=== PATIENT | male | born 1960 | race Caucasian/White ===

== ENCOUNTER 2021-03-13 09:53 | Outpatient (CLI) | payer OTHER | END 2021-03-13 09:54 | disposition home or self-care (01) | LOC: ULT 09:53 | PROVIDERS: ATTEND Physician Assistant Medical | DX: K76.0 Fatty (change of) liver, not elsewhere classified (principal); I85.00 Esophageal varices without bleeding; R16.1 Splenomegaly, not elsewhere classified; Z90.49 Acquired absence of other specified parts of digestive tract | CPT/HCPCS: 76705 ==